=== PATIENT | male | born 1980 | race Hispanic/Latino ===

== ENCOUNTER 2020-10-02 09:15 | Inpatient (IN) | payer OTHER, SELFPAY ==
[2020-10-02] MEDS ORDERED: Lorazepam 2 MG/ML VIAL ONE ×2 (09:54→10:55)
[2020-10-02] MEDS ORDERED: Bisacodyl 5 MG TAB PO PRN (10:35)
[2020-10-02] MEDS ORDERED: Ondansetron PF 4 MG/2 ML Vial IVP PRN (10:35)
[2020-10-02] MEDS ORDERED: Lorazepam 2 MG/ML VIAL SLOW IVP PRN (10:39)
[2020-10-02] MEDS ORDERED: Thiamine HCl 200 MG/2 ML VIAL SLOW IVP SCH (12:00)
[2020-10-02] MEDS ORDERED: Multivitamins, Adult 10 ML, Folic Acid 1 MG in Dextrose 5 %-0.45 % NaCl 1,000 ML IV SCH (12:00)
[2020-10-02 14:54] VITALS: BMI 20.7
[2020-10-02] MEDS: Diazepam 5 MG TAB PO SCH ×2 (15:55→20:44)
[2020-10-02] MEDS ORDERED: Ibuprofen 800 MG TAB PO PRN (17:12)
[2020-10-02] MEDS ORDERED: traMADol HCl 50 MG TAB PO PRN (17:13)
[2020-10-02] MEDS: traMADol HCl 50 MG TAB PO PRN (17:26)
[2020-10-02 20:27] LABS: SARS-CoV-2 PCR by NAA Not Detected (NotDetected)
[2020-10-02] MEDS: Famotidine 20 MG TAB PO SCH (20:44)
[2020-10-03] MEDS: traMADol HCl 50 MG TAB PO PRN (02:51)
[2020-10-03 06:00] LABS: ALT (SGPT) 155 U/L (8-55); AST (SGOT) 319 U/L (5-34); Albumin 4.2 g/dL (3.5-5.0); Alkaline Phosphatase 120 U/L (40-110); Anion Gap 16 mmol/L (10-20); BUN (Urea Nitrogen) 4 mg/dL (8.9-20.6); Bilirubin, Total 2.8 mg/dL (0.2-1.2); CK (CPK) 350 U/L (30-200); Calc. Creatinine Clearance 144 mL/min (70-130); Calcium 9.3 mg/dL (7.8-10.44); Carbon Dioxide 26 mmol/L (22-29); Chloride 93 mmol/L (98-107); Globulin 3.3 g/dL (2.4-3.5); Glucose 84 mg/dL (70-105); Protein, Total 7.5 g/dL (6.0-8.3); Sodium 132 mmol/L (136-145)
[2020-10-03 06:17] LABS: #Lymphocytes 1.2 thou/uL (1.20-3.40); %Basophils 0.4 % (0.0-1.0); %Eosinophils 0.3 % (0.0-10.0); %Monocytes 14.2 % (0.0-10.0); %Neutrophils 69.1 % (42.0-75.0); Hemoglobin 10.1 g/dL (14.0-18.0); Mean Corpuscular HGB CONC 34.1 g/dL (32.0-36.0); Mean Corpuscular Hemoglobin 35.8 pg (27.0-31.0); Platelet Count 83 thou/uL (130-400); Red Blood Cell (RBC) Count 2.82 mill/uL (4.70-6.10); White Blood Cell (WBC) Count 7.3 thou/uL (4.8-10.8)
[2020-10-03 07:45] VITALS: BP 153/97; TEMP 98.1
[2020-10-03] MEDS ORDERED: Nicotine 21 MG PATCH TD SCH (09:00)
[2020-10-03] MEDS ORDERED: Metoprolol Tartrate 25 MG TAB PO SCH (09:00)
[2020-10-03] MEDS: Diazepam 5 MG TAB PO SCH (10:00)
[2020-10-03] MEDS: Famotidine 20 MG TAB PO SCH (10:00)
== END 2020-10-03 11:35 | DRG 897 ==
LOC: ERS 09:15 → EEVIPCON 09:15 → ERHOLD 10:21 → 2SE 14:19
PROVIDERS: ADMIT Internal Medicine; ATTEND Internal Medicine
DX: F10.239 Alcohol dependence with withdrawal, unspecified (principal); M62.82 Rhabdomyolysis; S01.01XA Laceration without foreign body of scalp, initial encounter; I10 Essential (primary) hypertension; F17.210 Nicotine dependence, cigarettes, uncomplicated; R56.9 Unspecified convulsions; D53.9 Nutritional anemia, unspecified; W18.30XA Fall on same level, unspecified, initial encounter; Z71.6 Tobacco abuse counseling
CPT/HCPCS: 36415; 80053; 82550; 85025; 87635; 96374; 96376; J2060; J2405; J3411; J7042; U0003; U0005

== ENCOUNTER 2020-10-05 20:23 | Emergency (ER) | payer SELFPAY ==
[2020-10-05] MEDS ORDERED: chlordiazePOXIDE HCl 25 MG CAP ONE (23:20)
== END 2020-10-05 23:41 ==
LOC: ERS 20:23
DX: F10.239 Alcohol dependence with withdrawal, unspecified (principal); F20.9 Schizophrenia, unspecified; I10 Essential (primary) hypertension; F17.210 Nicotine dependence, cigarettes, uncomplicated
CPT/HCPCS: 99283